=== PATIENT | female | born 1995 | race Caucasian/White ===

== ENCOUNTER 2020-09-11 12:06 | Outpatient (REF) | payer OTHER, SELFPAY | END 2020-09-11 12:07 | disposition home or self-care (01) | LOC: HO.LAB 12:06 | PROVIDERS: Visit Provider Internal Medicine | DX: Z20.822 Contact with and (suspected) exposure to COVID-19 (principal) | CPT/HCPCS: C9803; U0003; U0005 ==

== ENCOUNTER → 2021-07-15 09:25 | Outpatient (BNVA) | payer OTHER, SELFPAY | PROVIDERS: Visit Provider Physician Assistant Surgical ==

== ENCOUNTER → 2021-08-16 08:14 | Outpatient (BNVA) | payer OTHER, SELFPAY | PROVIDERS: Visit Provider Surgery | DX: Z71.3 Dietary counseling and surveillance (principal) ==

== ENCOUNTER → 2021-09-13 08:04 | Outpatient (BNVA) | payer OTHER, SELFPAY | PROVIDERS: Visit Provider Dietitian, Registered | DX: Z13.89 Encounter for screening for other disorder (principal) ==

== ENCOUNTER 2022-07-01 18:02 | Emergency (ER) | payer OTHER, SELFPAY ==
[2022-07-01 19:21] VITALS: BP 123/76; PULSE 77; RESP 18; TEMP 36.6; O2SAT 97; BMI 42.4
--- NOTE | 2022-07-01 19:24 | ED.GENADULT ---
HPI - General Adult General Chief complaint: Skin/Abscess/Foreign Body Stated complaint: spider bite/ allergic Time Seen by Provider: 07/01/22 22:37 Related Data Home Medications Medication Instructions Recorded Confirmed etonogestrel 68 mg subdermal subdermal 07/15/21 08/16/21 implant (Nexplanon) Previous Rx's Medication Instructions Recorded sulfamethoxazole 800 1 tab PO BID #14 tabs 07/01/22 mg-trimethoprim 160 mg tablet (Bactrim DS) Allergies Allergy/AdvReac Type Severity Reaction Status Date / Time bupropion [Wellbutrin] Allergy Unknown hives Verified 07/01/22 19:25 [facility] Past Medical History Medical History Morbid obesity Surgical History History of wisdom tooth extraction, class I edentulism Hx of cholecystectomy Family History Family History (Updated 07/15/21 @ 09:39 by Priscilla Wynn CMA) Mother No problems noted. Sister No problems noted. Sister No problems noted. Sister No problems noted. Brother No problems noted. Daughter No problems noted. Daughter No problems noted. Son Diabetes Son No problems noted. Son No problems noted. Social History Social History (Updated 07/15/21 @ 09:40 by Priscilla Wynn CMA) Alcohol intake: never Patient Tobacco Use Status: Never used Tobacco Advance Directives: No Advance Directives Information Provided: No Physical Exam ED Vital Signs: BMI result Body Mass Index 42.4 Course Course Course Narrative: RME: 26 yold female presents to the ED for worsening abdominal pain redness and pain while being on anibiotics. patient states she was bitten by a spider, seen at [facility] and placed on anbitobics ( cephalexin). She states now area of redness is hard. ON exam large area of redness on abdomen that feels hard, but negative for fluctulance. Cellulitis vs early abscess. labs ordered Medical Decision Making Lab Data 07/01/22 19:39 07/01/22 19:39 Labs: Lab Results 07/01/22 07/01/22 Range/Units 19:39 19:39 WBC 12.0 H (4.8-10.8) X10*3/uL RBC 4.35 (4.20-5.50) X10*6/uL Hgb 13.2 (12.0-16.0) g/dl Hct 38.8 (37.0-47.0) % MCV 89.2 (80.0-98.0) fL MCH 30.3 (27.0-33.0) pg MCHC 34.0 (31.0-35.0) g/dl RDW 12.0 (11.0-16.0) % Plt Count 263 (160-400) X10*3/uL MPV 9.9 (9.4-12.3) fL Immature Gran % (Auto) 0.3 (0.0-0.4) % Neut % (Auto) 73.2 H (45-73) % Lymph % (Auto) 17.5 L (20-40) % [place] % (Auto) 8.4 (2-11) % Eos % (Auto) 0.4 (0-4) % Baso % (Auto) 0.2 (0-2) % Lymph # (Auto) 2.1 (1.2-4.9) X10*3/uL [place] # (Auto) 1.0 (0.1-1.2) X10*3/uL Eos # (Auto) 0.1 (0.0-0.4) X10*3/uL Baso # (Auto) 0.0 (0.0-0.2) X10*3/uL Abs Immat Gran (auto) 0.04 H (0.00-0.03) X10*3/uL Absolute Neuts (auto) 8.8 H (2.0-8.3) x10*3/uL Absolute Nucleated RBC 0.000 (0.0-0.012) X10*3/uL Nucleated RBC % (auto) 0.0 (0.0-0.2) /100WBC Sodium 140 (135-145) mmol/L Potassium 3.9 (3.3-5.1) mmol/L Chloride 105 (96-108) mmol/L Carbon Dioxide 25 (22-29) mmol/L Anion Gap 14 (12-20) BUN 10 (9-16) mg/dL Creatinine 0.71 (0.5-1.4) mg/dL Estim Creat Clear Calc 111.3 Estimated GFR > 60 Random Glucose 83 (60-115) mg/dL Calcium 8.9 (8.4-10.2) mg/dL Total Bilirubin 0.3 (0.0-1.0) mg/dL AST 22 (5-31) U/L ALT 20 (0-31) U/L Alkaline Phosphatase 72 (39-117) U/L Total Protein 6.4 L (6.5-8.0) g/dL Albumin 3.8 (3.5-5.0) g/dL Discharge Plan Discharge Clinical Impression: Cellulitis Patient Disposition: Home, Self-Care Instructions: Cellulitis (ED), Warm Compress or Soak (ED) Additional Instructions: Please continue to use warm soaks. Continue to use the current antibiotic cephalexin. Please add the Bactrim as a 2nd antibiotic for the next 7 days. Prescriptions: New sulfamethoxazole-trimethoprim [Bactrim DS] 800-160 mg tablet 1 tab PO BID Qty: 14 0RF No Action Nexplanon 68 mg implant subdermal Referrals: Physician,None [Primary Care Provider] - (Please follow-up with your doctor in 2 days) Interventions: ED Discharge Assessment Last Done: 07/01/22 23:31 Discharge Date/Time: 07/01/22 23:33
[2022-07-01 19:43] LABS: MANUAL DIFF FLAG NO
[2022-07-01 19:44] LABS: Basophils Percent Auto 0.2 % (0-2); Eosinophils Absolute Auto 0.1 X10*3/uL (0.0-0.4); Eosinophils Percent Auto 0.4 % (0-4); Hematocrit 38.8 % (37.0-47.0); Hemoglobin 13.2 g/dl (12.0-16.0); Imm Gran Abs Auto 0.04 X10*3/uL (0.00-0.03); Imm Gran Pct Auto 0.3 % (0.0-0.4); Lymphocytes Absolute Auto 2.1 X10*3/uL (1.2-4.9); Lymphocytes Percent Auto 17.5 % (20-40); Mean Corpuscular Hemoglobin 30.3 pg (27.0-33.0); Mean Corpuscular Volume 89.2 fL (80.0-98.0); Mean Platelet Volume 9.9 fL (9.4-12.3); Monocytes Percent Auto 8.4 % (2-11); Neutrophils Absolute Auto 8.8 x10*3/uL (2.0-8.3); Neutrophils Percent Auto 73.2 % (45-73); Platelet Count 263 X10*3/uL (160-400); Red Blood Count 4.35 X10*6/uL (4.20-5.50)
[2022-07-01 20:09] LABS: Alanine Aminotransferase 20 U/L (0-31); Albumin Level 3.8 g/dL (3.5-5.0); Alkaline Phosphatase 72 U/L (39-117); Anion Gap 14 (12-20); Aspartate Amino Transferase 22 U/L (5-31); Bilirubin Total 0.3 mg/dL (0.0-1.0); Blood Urea Nitrogen 10 mg/dL (9-16); Calcium 8.9 mg/dL (8.4-10.2); Carbon Dioxide 25 mmol/L (22-29); Chloride 105 mmol/L (96-108); Creatinine Clr Calc Pharmacy 111.3; Estimated Glomerular Filt Rate > 60; Glucose Random 83 mg/dL (60-115); Potassium 3.9 mmol/L (3.3-5.1); Sodium 140 mmol/L (135-145); Total Protein 6.4 g/dL (6.5-8.0)
[2022-07-01 22:30] VITALS: BP 129/73; PULSE 85; RESP 16; TEMP 36.7; O2SAT 99
--- NOTE | 2022-07-01 23:13 | ED_ITS ---
HPI - Skin/Abscess/Foreign Bdy General Chief complaint: Skin/Abscess/Foreign Body Stated complaint: spider bite/ allergic Time Seen by Provider: 07/01/22 22:37 History of Present Illness HPI narrative: Patient is a 26-year-old female status post spider bite to the left abdomen. Patient developed a redness was seen at [facility] 3 days prior. Started on Keflex. Patient presented to the ED the redness seems to be somewhat subsided but still have pain localized to that area patient presents to ED for further evaluation. Still feels painful. Patient does not have any history of diabetes. No nausea no vomiting no systemic complaints. Patient is from home. Related Data Home Medications Medication Instructions Recorded Confirmed etonogestrel 68 mg subdermal subdermal 07/15/21 08/16/21 implant (Nexplanon) Previous Rx's Medication Instructions Recorded sulfamethoxazole 800 1 tab PO BID #14 tabs 07/01/22 mg-trimethoprim 160 mg tablet (Bactrim DS) Allergies Allergy/AdvReac Type Severity Reaction Status Date / Time bupropion [Wellbutrin] Allergy Unknown hives Verified 07/01/22 19:25 Review of Systems Review of Systems: Positive pain to the left abdomen over the area where the rash is located. No nausea no vomiting Yes all other systems are reviewed and are negative [facility] Past Medical History Attestation statement: The following information was validated with the patient. Medical History Morbid obesity Surgical History History of wisdom tooth extraction, class I edentulism Hx of cholecystectomy Family History Family History (Updated 07/15/21 @ 09:39 by Priscilla Wynn CMA) Mother No problems noted. Sister No problems noted. Sister No problems noted. Sister No problems noted. Brother No problems noted. Daughter No problems noted. Daughter No problems noted. Son Diabetes Son No problems noted. Son No problems noted. Social History Social History (Updated 07/15/21 @ 09:40 by Priscilla Wynn CMA) Alcohol intake: never Patient Tobacco Use Status: Never used Tobacco Advance Directives: No Advance Directives Information Provided: No Physical Exam Vital Signs: Vital Signs: Last Vital Signs Temp 98.0 F 07/01/22 22:30 Pulse 85 07/01/22 22:30 Resp 16 07/01/22 22:30 BP 129/73 07/01/22 22:30 Pulse Ox 99 07/01/22 22:30 O2 Del Method 07/01/22 22:30 BMI result Body Mass Index 42.4 Appearance: Alert. Oriented X3. No acute distress. Eyes: Pupils equal, round and reactive to light. ENT: Pharynx normal. Neck: Normal inspection. Neck supple. No lymph nodes noted. No crepitus CVS: Normal heart rate and rhythm. Pulses normal. Normal S1 and S2 Respiratory: No respiratory distress. Breath sounds normal. No Wheezing. No ral es Abdomen: Soft and nontender. No rigidity. No distention. good BS x4 Skin: Skin warm and dry. Positive lesion to the left abdomen approximately 5 cm x 2 cm in size. There is an area that was demarcated that was much larger than the area redness. The area of redness is somewhat indurated. Although no gross fluctuance was palpable. Extremities: No lower extremity edema. Neurovascular intact to all extremities. No Lacerations. No Rash Neuro: Oriented X 3. No motor deficit. No sensory deficit. Moving all extermities. No slurred speech Medical Decision Making Medical Decision Making MDM Narrative: Patient did not have any fever or chills. No systemic complaints. CBC and chemistry was done prior to my arrival. CBC showed a white count of 12 electrolytes were normal. Given the slight indurated area in the middle with redness. A quick bedside ultrasound was done. There is no gross evidence of abscess noted. The area redness is well within the margin of demarcation. Thinks the Keflex is working. Will have patient continue warm soaks. Will add Bactrim for empiric MRSA coverage. Will have patient follow-up on an outpatient basis. In stable condition. Differential Diagnosis Cellulitis, abscess Lab Data [facility] Lab Attestation statement: I reviewed the patient's lab results. 07/01/22 19:39 07/01/22 19:39 Labs: Lab Results 07/01/22 07/01/22 Range/Units 19:39 19:39 WBC 12.0 H (4.8-10.8) X10*3/uL RBC 4.35 (4.20-5.50) X10*6/uL Hgb 13.2 (12.0-16.0) g/dl Hct 38.8 (37.0-47.0) % MCV 89.2 (80.0-98.0) fL MCH 30.3 (27.0-33.0) pg MCHC 34.0 (31.0-35.0) g/dl RDW 12.0 (11.0-16.0) % Plt Count 263 (160-400) X10*3/uL MPV 9.9 (9.4-12.3) fL Immature Gran % (Auto) 0.3 (0.0-0.4) % Neut % (Auto) 73.2 H (45-73) % Lymph % (Auto) 17.5 L (20-40) % [place] % (Auto) 8.4 (2-11) % Eos % (Auto) 0.4 (0-4) % Baso % (Auto) 0.2 (0-2) % Lymph # (Auto) 2.1 (1.2-4.9) X10*3/uL [place] # (Auto) 1.0 (0.1-1.2) X10*3/uL Eos # (Auto) 0.1 (0.0-0.4) X10*3/uL Baso # (Auto) 0.0 (0.0-0.2) X10*3/uL Abs Immat Gran (auto) 0.04 H (0.00-0.03) X10*3/uL Absolute Neuts (auto) 8.8 H (2.0-8.3) x10*3/uL Absolute Nucleated RBC 0.000 (0.0-0.012) X10*3/uL Nucleated RBC % (auto) 0.0 (0.0-0.2) /100WBC Sodium 140 (135-145) mmol/L Potassium 3.9 (3.3-5.1) mmol/L Chloride 105 (96-108) mmol/L Carbon Dioxide 25 (22-29) mmol/L Anion Gap 14 (12-20) BUN 10 (9-16) mg/dL Creatinine 0.71 (0.5-1.4) mg/dL Estim Creat Clear Calc 111.3 Estimated GFR > 60 Random Glucose 83 (60-115) mg/dL Calcium 8.9 (8.4-10.2) mg/dL Total Bilirubin 0.3 (0.0-1.0) mg/dL AST 22 (5-31) U/L ALT 20 (0-31) U/L Alkaline Phosphatase 72 (39-117) U/L Total Protein 6.4 L (6.5-8.0) g/dL Albumin 3.8 (3.5-5.0) g/dL Discharge Plan Discharge Clinical Impression: Cellulitis Patient Disposition: Home, Self-Care Instructions: Cellulitis (ED), Warm Compress or Soak (ED) Additional Instructions: Please continue to use warm soaks. Continue to use the current antibiotic cephalexin. Please add the Bactrim as a 2nd antibiotic for the next 7 days. Prescriptions: New sulfamethoxazole-trimethoprim [Bactrim DS] 800-160 mg tablet 1 tab PO BID Qty: 14 0RF No Action Nexplanon 68 mg implant subdermal Referrals: Physician,None [Primary Care Provider] - (Please follow-up with your doctor in 2 days)
== END 2022-07-01 23:33 | disposition home or self-care (01) ==
PROVIDERS: Physician Assistant; Emergency Provider Emergency Medicine Emergency Medical Services
DX: L03.311 Cellulitis of abdominal wall (principal); E66.01 Morbid (severe) obesity due to excess calories; Z68.41 Body mass index [BMI] 40.0-44.9, adult
CPT/HCPCS: 36415; 80053; 85025; 99283